=== PATIENT | male | born 1955 | race Caucasian/White ===

== ENCOUNTER → 2018-07-19 | Outpatient (CLI) | payer OTHER ==
[~2018-07-19] MED LIST: CARDURA4 MG PO; FLECAINIDE ACET50 M1 PO; FLONASE 0.05%50 MCG NASAL; GEMFIBROZIL 60600 M1 PO; NORVASC5 MG PO; PERCOCET 5-3251 EACH PO; TOPROL XL25 MG PO; XARELTO20 MG PO; ZOFRAN4 MG PO
--- NOTE | 2018-07-19 15:01 | 2DMMODE ---
[facility] [place] [address] 2 D/M-MODE ECHOCARDIOGRAM Name: JOHN BURNHAM Room #: [facility]#: [id number] Admission: 07/19/18 Attend Phys: Oscar Yap Discharge: Date of : 51 Date of Service: 07/19/18 1501 Report #: [id number] THIS REPORT FOR: //name// APPROVED REPORT Study performed: 07/19/2018 14:04:40 EXAM: Comprehensive 2D, Doppler, and color-flow Echocardiogram Patient Location: Out-Patient Status: routine BSA: 2.09 HR: 63 bpm BP: 136/98 mmHg Rhythm: NSR Other Information Study Quality: Good Indications Afib, HTN 2D Dimensions RVDd: 37.22 mm IVSd: 11.31 (7-11mm) LVOT Diam: 20.11 (18-24mm) LVDd: 50.42 mm PWd: 10.96 (7-11mm) Ascending Ao: 40.12 (22-36mm) LVDs: 35.44 (25-40mm) Aortic Root: 35.58 mm Volumes Left Atrial Volume (Systole) Single Plane 4CH: 72.21 mL Single Plane 2CH: 62.62 mL LA ESV Index: 35.00 mL/m2 Aortic Valve AoV Peak Naga.: 1.77 m/s AO Peak Gr.: 12.48 mmHg LVOT Max P.18 mmHg AO Mean Gr.: 7.67 mmHg AO V2 Mean: 1.32 m/s LVOT Max V: 1.02 m/s AO V2 VTI: 37.62 cm LE Vmax: 1.84 cm2 Mitral Valve E/A Ratio: 3.9 [facility] [address] [place] [address] 2 D/M-MODE ECHOCARDIOGRAM Name: JOHN BURNHAM Room #: [facility]#: [id number] Admission: 07/19/18 Attend Phys: Oscar Yap Discharge: Date of : 51 Date of Service: 07/19/18 1501 Report #: [id number] MV Decel. Time: 157.03 ms MV E Max Naga.: 0.98 m/s MV A Naga.: 0.25 m/s MV PHT: 45.54 ms IVRT: 78.43 ms Pulmonary Valve PV Peak Naga.: 0.61 m/s PV Peak Gr.: 1.51 mmHg Tricuspid Valve TR Peak Naga.: 3.14 m/s RAP Estimate: 5.00 mmHg TR Peak Gr.: 39.48 mmHg PA Pressure: 45.00 mmHg Left Ventricle The left ventricle is normal size. There is normal LV segmental wall motion. There is normal left ventricular wall thickness. Left ventricular systolic function is normal. LVEF is 55-60%. Severe diastolic dysfunction is present (restrictive filling). Right Ventricle The right ventricle is normal size. The right ventricular systolic function is normal. Atria Left atrium is mildly dilated. Right atrium is mildly dilated. Aortic Valve Aortic valve leaflets are thickened mildly calcified Mild to moderate aortic regurgitation. Very mild aortic stenosis (1.8m/sec) Mitral Valve Mitral valve leaflets are mildly calcified. Mild to moderate mitral regurgitation. Tricuspid Valve The tricuspid valve is normal in structure. Mild to moderate tricuspid regurgitation with an estimated PAP of 45mmHg. Pulmonic Valve The pulmonary valve is normal in structure. Trace pulmonic regurgitation. Great Vessels The aortic root is normal in size. The ascending aorta is mildly [facility] [address] [place] [address] 2 D/M-MODE ECHOCARDIOGRAM Name: MARINA BURNHAMCLAIRE Sanchez Room #: [facility]#: [id number] Admission: 07/19/18 Attend Phys: Oscar Yap Discharge: Date of : 51 Date of Service: 07/19/18 1501 Report #: [id number] dilated at 4.0cm. IVC is normal in size and collapses >50% with inspiration. Pericardium There is no pericardial effusion. <Conclusion> Left ventricular systolic function is normal. There is normal LV segmental wall motion. LVEF is 55-60%. Severe diastolic dysfunction Left atrium is mildly dilated. Aortic valve leaflets are thickened mildly calcified Mild to moderate aortic regurgitation. Very mild aortic stenosis (1.8m/sec) Mitral valve leaflets are mildly calcified. Mild to moderate mitral regurgitation. Mild to moderate tricuspid regurgitation with an estimated pulmonary artery pressure of 45mmHg. The ascending aorta is mildly dilated at 4.0cm. There is no pericardial effusion. <ELECTRONICALLY SIGNED> By: Baljinder Yu MD, [facility] 07/19/18 1501 1501 150 Baljinder Yu MD, FACC /INF
== END ==
LOC: CV 07-18 14:26
DX: I08.3 Combined rheumatic disorders of mitral, aortic and tricuspid valves (principal); I48.0 Paroxysmal atrial fibrillation; I10 Essential (primary) hypertension

== ENCOUNTER → 2018-07-25 | Outpatient (CLI) | payer OTHER | LOC: CAT 10:26 | DX: Z13.6 Encounter for screening for cardiovascular disorders (principal); Z82.49 Family history of ischemic heart disease and other diseases of the circulatory system ==

== ENCOUNTER 2018-08-06 21:18 | Emergency (ER) | payer OTHER ==
[~2018-08-06] VITALS: Ht 180.3 cm; Wt 84.4 kg
[2018-08-06 21:55] LABS: ABSOLUTE NEUTROPHILS 7.9 thou/uL (1.4-8.2); BASOPHILS 0.8 % (0.0-2.0); HEMATOCRIT 47.7 % (42.0-52.0); HEMOGLOBIN 16.7 gm/dL (14.0-18.0); LYMPHOCYTES 10.4 % (24.0-44.0); MCV 91.4 fL (80.0-100.0); MONOCYTES 6.2 % (1.0-8.0); PLATELET COUNT 161 thou/uL (150-400); POLYS 79.6 % (36.0-66.0); RBC 5.22 mil/uL (4.50-6.00); RDW 13.2 % (10.5-14.5); WBC 9.9 thou/uL (4.0-11.0)
[2018-08-06] MEDS ORDERED: ATORVASTATIN CA40 MG PO (21:55)
[2018-08-06 21:57] LABS: URINE BILIRUBIN NEGATIVE (Negative); URINE BLOOD 3+ (Negative); URINE CLARITY CLEAR; URINE COLOR YELLOW; URINE GLUCOSE-RANDOM* NEGATIVE (Negative); URINE KETONES 1+ (Negative); URINE LEUKOCYTES NEGATIVE (Negative); URINE NITRITE NEGATIVE (Negative); URINE PROTEIN (DIPSTICK) TRACE (Negative); URINE SPECIFIC GRAVITY >= 1.030 (1.005-1.035); URINE UROBILINOGEN 0.2 E.U./dl (0.2-1.0)
[2018-08-06 22:02] LABS: CALCIUM 9.3 mg/dL (8.5-10.1); CREATININE 1.2 mg/dL (0.7-1.3); POTASSIUM 3.8 mmol/L (3.5-5.1)
[2018-08-06 22:08] LABS: ALBUMIN 3.7 g/dL (3.4-5.0); TOTAL BILIRUBIN 0.6 mg/dL (<0.1-1.0); TOTAL PROTEIN 8.3 g/dL (6.4-8.2)
[2018-08-06 22:13] LABS: SQUAMOUS 0-3 Few /LPF (0-3); URINE WBC 0-5 Rare /HPF (0-5)
[2018-08-06 22:14] LABS: BACTERIA 1-9 Few /HPF (None Seen); CASTS None Seen /LPF (None Seen); CRYSTALS None Seen /LPF (None Seen); MUCUS 4-6 Moderate strn/LPF (None Seen)
[2018-08-07] MEDS ORDERED: FLOMAX0.4 MG PO (00:24)
[2018-08-07] MEDS ORDERED: NORCO 5-325 TA1 EACH PO (00:24)
[2018-08-07 01:03] VITALS: BP 170/75
--- NOTE | 2018-08-07 08:05 | EKG ---
[facility] [place] [place] [address] ELECTROCARDIOGRAM REPORT Name: JOHN BURNHAM Room #: [facility]#: [id number] ������������������ Admission: 08/06/18 ������������������ Attend Phys: Discharge: 08/07/18 ������������������ Date of : 51 Report #: [id number] ����������������������������������������������������������������� [id number] THIS REPORT FOR: //name// [facility] ED Test Date: 2018-08-07 Test Time: 00:17:36 Pat Name: JOHN BURNHAM Department: Room: Gender: Rn Research: JULIA DOOLEY : 1955 Requested By: Reynaldo Crum Order Number: [id number] MD: Baljinder Yu Measurements Intervals [place] Rate: 68 P: -58 NC: 198 QRS: -48 QRSD: 104 T: 60 QT: 438 QTc: 466 Interpretive Statements Sinus rhythm with first-degree AV block Inferior infarct, old Poor R wave progression Nonspecific ST segment abnormality Compared to ECG 01/22/2016 11:50:31 Nonspecific change in the ST and T-wave segments Electronically Signed On 08-07-2018 8:05:14 ASSISTANT PROFESSOR OF ECONOMICS by Baljinder Yu [email or web address] ��������������������������������������������� <ELECTRONICALLY SIGNED> ���������������������������������������� By: Baljinder Yu MD, [facility] ��������������������������������������������� 08/07/18 0805 0017 0017 Baljinder Yu MD, [facility] /EPI
== END 2018-08-07 01:20 | disposition home or self-care (01) ==
LOC: ER 21:18
PROVIDERS: Emergency Medicine
DX: N20.1 Calculus of ureter (principal); I10 Essential (primary) hypertension; I48.91 Unspecified atrial fibrillation; Z88.2 Allergy status to sulfonamides; Z79.01 Long term (current) use of anticoagulants

== ENCOUNTER → 2018-08-17 | Outpatient (CLI) | payer OTHER ==
[~2018-08-17] MED LIST changes: +ATORVASTATIN CA40 MG PO; +FLOMAX0.4 MG PO; +NORCO 5-325 TA1 EACH PO
== END ==
LOC: NUC 07:45
DX: R93.1 Abnormal findings on diagnostic imaging of heart and coronary circulation (principal); I10 Essential (primary) hypertension; E78.5 Hyperlipidemia, unspecified; I48.91 Unspecified atrial fibrillation

== ENCOUNTER → 2019-08-01 | Outpatient (CLI) | payer OTHER | LOC: SJCVC 13:57 | DX: I48.0 Paroxysmal atrial fibrillation (principal); I10 Essential (primary) hypertension; Z79.899 Other long term (current) drug therapy ==

== ENCOUNTER → 2019-09-04 | Outpatient (CLI) | payer OTHER | LOC: SJCVCIMAG 09:03 | PROVIDERS: ATTEND Internal Medicine Cardiovascular Disease | DX: I08.8 Other rheumatic multiple valve diseases (principal); R94.31 Abnormal electrocardiogram [ECG] [EKG]; I44.0 Atrioventricular block, first degree; I48.0 Paroxysmal atrial fibrillation ==

== ENCOUNTER → 2019-09-18 | Outpatient (CLI) | payer OTHER | LOC: SJCVC 15:28 | DX: I11.9 Hypertensive heart disease without heart failure (principal); I34.0 Nonrheumatic mitral (valve) insufficiency; I48.0 Paroxysmal atrial fibrillation; Z79.899 Other long term (current) drug therapy ==

== ENCOUNTER → 2019-10-03 | Outpatient (CLI) | payer OTHER | LOC: SJCVC 13:17 | DX: I11.9 Hypertensive heart disease without heart failure (principal); I34.0 Nonrheumatic mitral (valve) insufficiency; I48.0 Paroxysmal atrial fibrillation; E78.00 Pure hypercholesterolemia, unspecified; Z79.01 Long term (current) use of anticoagulants; Z79.899 Other long term (current) drug therapy ==

== ENCOUNTER → 2019-11-13 | Outpatient (CLI) | payer OTHER | LOC: SJCVCIMAG 09:16 | PROVIDERS: ATTEND Internal Medicine Cardiovascular Disease | DX: I08.3 Combined rheumatic disorders of mitral, aortic and tricuspid valves (principal); I27.20 Pulmonary hypertension, unspecified; I44.0 Atrioventricular block, first degree; I11.9 Hypertensive heart disease without heart failure; R94.31 Abnormal electrocardiogram [ECG] [EKG]; I48.0 Paroxysmal atrial fibrillation; Z79.01 Long term (current) use of anticoagulants; Z79.899 Other long term (current) drug therapy ==

== ENCOUNTER → 2020-05-14 | Outpatient (CLI) | payer OTHER | LOC: SJCVC 13:29 | PROVIDERS: ATTEND Internal Medicine Cardiovascular Disease | DX: I48.0 Paroxysmal atrial fibrillation (principal); R94.31 Abnormal electrocardiogram [ECG] [EKG]; I10 Essential (primary) hypertension; I35.9 Nonrheumatic aortic valve disorder, unspecified; I27.20 Pulmonary hypertension, unspecified; Z79.899 Other long term (current) drug therapy; Z79.01 Long term (current) use of anticoagulants ==

== ENCOUNTER → 2020-06-03 | Outpatient (CLI) | payer OTHER | LOC: LAB 08:54 | PROVIDERS: ATTEND Internal Medicine Cardiovascular Disease | DX: Z01.812 Encounter for preprocedural laboratory examination (principal); Z20.828 Contact with and (suspected) exposure to other viral communicable diseases ==

== ENCOUNTER → 2020-06-08 | Outpatient (CLI) | payer OTHER ==
[~2020-06-08] VITALS: Ht 180.3 cm; Wt 85.3 kg
[~2020-06-08] MED LIST changes: +BENICAR40 MG PO; +CIALIS5 MG PO; +NORVASC 2.5 MG2.5 M1 PO
--- NOTE | ~2020-06-08 | P ---
[facility] [address] PROCEDURE REPORT Name: JOHN BURNHAM Room #: [facility]#: [id number] Admission: 06/08/20 Attend Phys: Oscar Yap MD Discharge: Date of : 51 Report #: [id number] THIS REPORT FOR: cc: Wojciech Garcia MD, David W. MD Couchonnal, Luis F. MD ~ PROCEDURE: Cardioversion. PREOPERATIVE DIAGNOSIS: Atrial fibrillation. POSTOPERATIVE DIAGNOSIS: Atrial fibrillation. DESCRIPTION OF PROCEDURE: The patient underwent informed consent. He was prepped in a standard fashion. Patches were placed in AP position. He was then sedated by the Anesthesiology service and then underwent a single 200 joule synchronized cardioversion with catholic of sinus rhythm. There were no procedure related complications. CONCLUSIONS: Successful DC cardioversion with catholic of sinus rhythm. By: [id number] Oscar Yap MD /nt
[2020-06-08 07:17] VITALS: BP 136/75
[2020-06-08 07:42] LABS: ABSOLUTE NEUTROPHILS 4.2 thou/uL (1.4-8.2); HEMOGLOBIN 16.1 gm/dL (14.0-18.0); LYMPHOCYTES 16.1 % (24.0-44.0); RDW 13.1 % (10.5-14.5); WBC 6.8 thou/uL (4.0-11.0)
[2020-06-08 07:44] LABS: BASOPHILS 1.3 % (0.0-2.0); EOSINOPHILS 8.4 % (0.0-3.0); HEMATOCRIT 47.5 % (42.0-52.0); MCH 30.8 pg (26.0-34.0); MCHC 33.9 g/dL (28.0-37.0); MCV 90.9 fL (80.0-100.0); MONOCYTES 12.2 % (1.0-8.0); PLATELET COUNT 181 thou/uL (150-400); RBC 5.22 mil/uL (4.50-6.00)
[2020-06-08 07:55] LABS: CALCIUM 9.6 mg/dL (8.5-10.1); CREATININE 1.3 mg/dL (0.7-1.3); POTASSIUM 4.1 mmol/L (3.5-5.1)
[2020-06-08 08:02] LABS: ALBUMIN 3.8 g/dL (3.4-5.0); TOTAL BILIRUBIN 0.7 mg/dL (0.2-1.0); TOTAL PROTEIN 8.3 g/dL (6.4-8.2)
[2020-06-08 08:05] LABS: APTT 29.7 Seconds (24.5-32.8); INR 1.2; PROTIME 12.6 Seconds (9.3-11.4)
== END | disposition home or self-care (01) ==
LOC: CATH 06:31
PROVIDERS: ATTEND Internal Medicine Cardiovascular Disease
DX: I48.91 Unspecified atrial fibrillation (principal); I10 Essential (primary) hypertension; E78.5 Hyperlipidemia, unspecified; N40.0 Benign prostatic hyperplasia without lower urinary tract symptoms; Z98.890 Other specified postprocedural states; Z79.899 Other long term (current) drug therapy; Z88.2 Allergy status to sulfonamides; Z79.01 Long term (current) use of anticoagulants
CPT/HCPCS: 62110; 62900

== ENCOUNTER → 2020-07-09 | Outpatient (CLI) | payer OTHER | LOC: SJCVC 14:25 | PROVIDERS: ATTEND Internal Medicine Cardiovascular Disease | DX: I48.91 Unspecified atrial fibrillation (principal); I44.0 Atrioventricular block, first degree; R94.31 Abnormal electrocardiogram [ECG] [EKG]; I10 Essential (primary) hypertension; I95.1 Orthostatic hypotension; Z88.8 Allergy status to other drugs, medicaments and biological substances; Z79.899 Other long term (current) drug therapy; Z98.890 Other specified postprocedural states ==

== ENCOUNTER → 2020-10-08 | Outpatient (CLI) | payer OTHER | LOC: SJCVC 15:29 | PROVIDERS: ATTEND Internal Medicine Cardiovascular Disease | DX: R94.31 Abnormal electrocardiogram [ECG] [EKG] (principal); I48.0 Paroxysmal atrial fibrillation; I44.0 Atrioventricular block, first degree; I10 Essential (primary) hypertension; Z88.2 Allergy status to sulfonamides; Z79.899 Other long term (current) drug therapy; Z98.890 Other specified postprocedural states ==

== ENCOUNTER → 2021-02-23 | Outpatient (CLI) | payer OTHER | LOC: SJCVC 15:02 | PROVIDERS: ATTEND Internal Medicine Cardiovascular Disease | DX: I48.0 Paroxysmal atrial fibrillation (principal); R00.1 Bradycardia, unspecified; Z79.899 Other long term (current) drug therapy; Z72.89 Other problems related to lifestyle; Z88.2 Allergy status to sulfonamides ==

== ENCOUNTER → 2021-03-02 | Outpatient (CLI) | payer OTHER | LOC: SJCVC 11:22 | PROVIDERS: ATTEND Internal Medicine Cardiovascular Disease | DX: R94.31 Abnormal electrocardiogram [ECG] [EKG] (principal); I49.8 Other specified cardiac arrhythmias; I44.0 Atrioventricular block, first degree; I48.0 Paroxysmal atrial fibrillation; I10 Essential (primary) hypertension; I49.5 Sick sinus syndrome; Z88.2 Allergy status to sulfonamides; Z79.899 Other long term (current) drug therapy; Z72.89 Other problems related to lifestyle ==

== ENCOUNTER 2021-03-08 09:07 | Observation (INO) | payer OTHER ==
[~2021-03-08] VITALS: Ht 180.3 cm; Wt 88.5 kg
--- NOTE | ~2021-03-08 | P ---
[facility] [place] [address] PROCEDURE REPORT Name: JOHN BURNHAM Room #: 203-P [facility]#: [id number] Admission: 03/08/21 Attend Phys: Oscar Yap MD Discharge: Date of : 51 Report #: [id number] THIS REPORT FOR: cc: Wojciech Garcia MD, David W. MD Couchonnal, Luis F. MD ~ DATE OF SERVICE: 03/08/2021 PREOPERATIVE DIAGNOSIS: Atrial fibrillation. POSTOPERATIVE DIAGNOSIS: Atrial fibrillation. PROCEDURES PERFORMED: 1. Atrial fibrillation ablation, CPT code 72831 2. Program stimulation pacing after IV drug infusion, CPT code 47437. 3. Mapping, CPT code 63947. 4. Intracardiac echo, CPT code 98571. 5. Focal ablation -- CPT code 66460. HISTORY: The patient has a history of atrial fibrillation, recently seen in clinic with symptomatic bradycardia due to his flecainide and beta blockers. These have been discontinued and he is here for AFib ablation. ANESTHESIA: The patient underwent general anesthesia with no anesthesia related complications. DESCRIPTION OF PROCEDURE: The patient underwent informed consent. We discussed the details of the procedure including the risks, which include but not limited to bleeding, infection, vascular damage, stroke, NM, cardiac perforation and damage to the nondalton conduction system requiring a permanent pacemaker. He understood these risks and is willing to proceed. The patient was brought to the EP laboratory in a fasting and sedated state, prepped and draped in a standard fashion. I obtained access to the right femoral vein x3, placing an 8, 9 and 7-Bots[place] short sheath using the modified Seldinger technique. Next, under fluoroscopy, decapolar catheter was placed in the coronary sinus for left atrial pacing recording. An ICE catheter was placed in the right atrium. With intracardiac ultrasound, I verified that he had 2 left and 2 right pulmonary veins. He did have a thick interatrial septum. I then systemically heparinized the patient and transseptal was then performed. My initial transseptal was slightly high, so I pulled back to the right atrium. My second attempt to transseptal was at a lower position, but through a thicker part of the septum and his septum was pretty much thick throughout. I was able to advance the guidewire into the left superior pulmonary vein, but I could not advance the SL1 sheath into left atrium. Therefore, I exchanged for the cryosheath and this would not cross either, but it did dilate the septum enough [address] [address] PROCEDURE REPORT Name: JOHN BURNHAM Room #: 203-P [facility] M.R.#: [id number] Admission: 03/08/21 Attend Phys: Oscar Yap MD Discharge: Date of : 51 Report #: [id number] for me to then cross with the SL1 sheath into the left atrium. Then, I used a balloon. We performed 2 dilatations of the interatrial septum and then I was able to advance the cryosheath into the left atrium with ease. Next, the Lasso catheter was placed in the left atrium and I created a 3D geometry of the left atrium, which showed a connection of the 4 pulmonary veins. As such, the cryoballoon was placed into the left atrium and we started by isolating the left superior pulmonary vein. The superior pulmonary vein underwent two 4-minute freezes which resulted in isolation. The left inferior pulmonary vein underwent a single freeze of 180 seconds duration resulting in isolation in 30 seconds. The right superior pulmonary vein underwent a 100-second freeze isolating the vein in 30 seconds, but due to cold temps, it came off early. A second freeze of 100 seconds duration was performed. I then turned my attention to the right inferior pulmonary vein and this vein isolated at 58 seconds and underwent a single 4-minute freeze. There was never any phrenic nerve compromise with either of the right sided freezes. Given the patient's history of persistent AFib, I decided to perform posterior roof isolation. I performed a total of 6 freezes anchored from the left superior pulmonary vein, 4 along the roof and then 2 slightly below these root freezes. Next, a repeat voltage map was created and there was now evidence of isolation of all 4 pulmonary veins and posterior roof isolation as well. POST-ABLATION EP STUDY: A basic EP study was performed. AV block was noted at 630 milliseconds. AV melania ERP was noted at 490 milliseconds with a [address] cycle length. Isoproterenol infusion was initiated at 2 mcg per minute and AV block was noted at 420 milliseconds. AV melania ERP was noted at 290 milliseconds at a [address] cycle length. Atrial burst pacing was performed between 220-270 milliseconds and I could not induce any atrial fibrillation or atrial flutter. I was able to measure an AH interval of 127 milliseconds and an HV interval of 50 milliseconds. As such, the procedure was concluded. Intracardiac ultrasound verified there was no pericardial effusion. The patient received systemic protamine and once the ACT was in the acceptable range, catheters and sheaths were pulled and hemostasis obtained. CONCLUSION: 1. Successful AFib ablation with isolation of pulmonary veins. 2. Successful posterior roof isolation. 3. Normal EP study with no inducible arrhythmias on or off isoproterenol. By: [id number] Oscar Yap MD /niraj
[2021-03-08 09:45] VITALS: BP 144/85
[2021-03-08 09:57] LABS: ABSOLUTE NEUTROPHILS 4.2 thou/uL (1.4-8.2); EOSINOPHILS 5.9 % (0.0-3.0); HEMATOCRIT 45.1 % (42.0-52.0); HEMOGLOBIN 15.1 gm/dL (14.0-18.0); LYMPHOCYTES 13.5 % (24.0-44.0); MCH 31.1 pg (26.0-34.0); MCHC 33.6 g/dL (28.0-37.0); MCV 92.5 fL (80.0-100.0); PLATELET COUNT 182 thou/uL (150-400); POLYS 69.6 % (36.0-66.0); RBC 4.87 mil/uL (4.50-6.00); RDW 12.9 % (10.5-14.5)
[2021-03-08 10:11] LABS: APTT 26.2 Seconds (24.5-32.8); CALCIUM 9.4 mg/dL (8.5-10.1); CREATININE 1.2 mg/dL (0.7-1.3); POTASSIUM 3.6 mmol/L (3.5-5.1); PROTIME 10.9 Seconds (10.5-12.1)
[2021-03-08] MEDS ORDERED: CETIRIZINE HCL5 MG PO (10:14)
[2021-03-08] MEDS ORDERED: COQ-10100 MG PO (10:15)
[2021-03-08 10:17] LABS: ALBUMIN 3.7 g/dL (3.4-5.0); TOTAL BILIRUBIN 0.5 mg/dL (0.2-1.0)
--- NOTE | 2021-03-08 17:18 | NUR ---
PT ORIENTED TO ROOM AND UNIT, BED LOWAND LOCKED, SIDE RAILS UPX3, CALL LIGHT IN REACH, TELE APPLIED, RIGHT GROIN CDI WITH NO HEMATOMA. FREQUENT VITALS AND RIGHT GROIN ASSESSMENT ON POST PROCEDURE FLOW SHEET. WILL CONTINUE TO ASSESS.
[2021-03-08 19:29] VITALS: BP 130/74
[2021-03-08 23:19] VITALS: BP 122/68
[2021-03-09 04:00] VITALS: BP 136/73
[2021-03-09 07:00] VITALS: BP 137/78
--- NOTE | 2021-03-09 07:22 | NUR ---
ASSUMED PT CARE AT 1900, PT IS ALERT AND ORIENTEDX4, SR/1DAVB, DENIES PAIN OR SOA, R. GROIN SITE CDI, NO HEMATOMA, PT UPADLIB TO THE BATHROOM, DENIES NEEDS, VSS, PASSED ON REPORT TO DAY NURSE
[2021-03-09 10:57] VITALS: BP 137/78
[2021-03-09 11:38] VITALS: BP 137/78
== END 2021-03-09 12:06 | disposition home or self-care (01) ==
LOC: CATH 09:07 → 2N 17:28
PROVIDERS: ADMIT Internal Medicine Cardiovascular Disease; ATTEND Internal Medicine Cardiovascular Disease
DX: I48.0 Paroxysmal atrial fibrillation (principal); Z20.822 Contact with and (suspected) exposure to COVID-19; R00.1 Bradycardia, unspecified; I10 Essential (primary) hypertension; Z79.01 Long term (current) use of anticoagulants; Z79.899 Other long term (current) drug therapy; Z23 Encounter for immunization
CPT/HCPCS: 62110; 62900; 65020; 65131; 70005